=== PATIENT | female | born 1955 ===

== ENCOUNTER 2022-06-09 10:45 | Inpatient (IN) | payer OTHER ==
[~2022-06-09] VITALS: Ht 157.5 cm; Wt 60.3 kg
[2022-06-10] MEDS ORDERED: PEPCID AC10 MG PO (08:25)
[2022-06-10] MEDS ORDERED: CRESTOR10 MG PO (08:26)
[2022-06-10] MEDS ORDERED: ZESTORETIC 10-1 EACH PO (08:26)
[2022-06-10] MEDS ORDERED: FENOFIBRATE30 MG PO (08:26)
[2022-06-10] MEDS ORDERED: METFORMIN HCL500 M3 PO (08:26)
[2022-06-15] MEDS ORDERED: DIPHENHYDR50 MG/1 M1 (08:17)
[2022-06-15] MEDS ORDERED: PANTOPRAZOLE SO40 MG (08:18)
[2022-06-15] MEDS ORDERED: FENOFIBRATE145 MG (08:18)
[2022-06-16] MEDS ORDERED: INTEGRA F CAPS1 EACH PO (06:57)
== END 2022-06-16 11:38 | disposition home or self-care (01) | DRG 331 ==
LOC: SURG 06-12 07:58 → O/R 06-12 07:58 → SURG 06-12 10:45
PROVIDERS: ADMIT Surgery; ATTEND Surgery
PROC: 07BB4ZZ Excision of Mesenteric Lymphatic, Percutaneous Endoscopic Approach (ICD-10-PCS; 2022-06-12)
PROC: 0DTF4ZZ Resection of Right Large Intestine, Percutaneous Endoscopic Approach (ICD-10-PCS; principal; 2022-06-12 20:00)
DX: C18.2 Malignant neoplasm of ascending colon (principal); R59.0 Localized enlarged lymph nodes; K59.09 Other constipation; D50.0 Iron deficiency anemia secondary to blood loss (chronic); D12.1 Benign neoplasm of appendix; I11.9 Hypertensive heart disease without heart failure; E11.9 Type 2 diabetes mellitus without complications; Z20.822 Contact with and (suspected) exposure to COVID-19

== ENCOUNTER 2022-07-10 18:58 | Inpatient (IN) | payer OTHER ==
[~2022-07-10] VITALS: Ht 152.4 cm; Wt 52.2 kg
[~2022-07-10 18:58] MED LIST: CRESTOR10 MG PO; DIPHENHYDR50 MG/1 M1; FENOFIBRATE145 MG; FENOFIBRATE30 MG PO; INTEGRA F CAPS1 EACH PO; METFORMIN HCL500 M3 PO; PANTOPRAZOLE SO40 MG; PEPCID AC10 MG PO; ZESTORETIC 10-1 EACH PO
--- NOTE | 2022-07-10 19:10 | NUR ---
SE RECIBE PTE FEMENINA ALERTA Y ORIENTADA EN LAS LYRIC ESFERAS EN AMBULANCIA QUIEN REFIERE DOLOR ABDOMINAL Y FIEBRE DESDE EL JILLIAN DE MARY. PTE INDICA FUE OPERADA POR DR.LOPEZ ABDUL EL PASADO 14 DE 2021, SE OBSERVA AREA DE HERIDA QUIRURGICA CON ERITEMA Y CALIENTE AL TACTO.
--- NOTE | 2022-07-10 22:39 | NUR ---
PTE FEMENINA EVALUADA POR . SE ORIENTA SOBRE ORDENES DE [place] REFIERE COMPRENDER. SE COELCTAN [facility]UESTR[facility] DE [facility] Y SE CANALIZA VENA BAJO MEDIDAS ASEPTICAS. SE ADMINISTRAN MEDICAMENTOS, BAJO MEDIDAS ASEPTICAS. SE ENTREGA CONTRASTE ORAL Y SE ORIENTA.
--- NOTE | 2022-07-11 02:59 | NUR ---
PTE ALERTA Y ORIENTADA X3 EN ALLI CON BARANDAS ELEVADAS. PTE CANALIZADA AREA RUBEN DE EDEMA Y DE ENROJECIMIENTO. PTE PENDIENTE A CT PO BENNY ORDEN MEDICA.PTE REFIERE QUE NO SE QUIERE MIMI CONTRASTE PO. SE EDUCA DE LA IMPORTANCIA DEL MISMO Y AHUN ASI REFIERE QUE NO SE LO VA A MIMI.
--- NOTE | 2022-07-11 07:57 | NUR ---
SE RECIBE PTE FEMENINA DE 66 YR ALERTA CONCIETE Y TRANQUILA EN COMPANIA DE FAMILAIR. PTE EN ALLI CON BARBADA ELEVADA, SE MANTIENE BAJO OBSERVACION.
[2022-07-16] MEDS ORDERED: AMOX-CLAV 875-1 EACH PO (15:41)
== END 2022-07-16 22:58 | disposition home or self-care (01) | DRG 603 ==
LOC: ER 18:58 → SURH 07-11 10:31
PROVIDERS: ADMIT Surgery; ATTEND Surgery
PROC: 02HV33Z Insertion of Infusion Device into Superior Vena Cava, Percutaneous Approach (ICD-10-PCS; principal; 2022-07-11)
PROC: 30233N1 Transfusion of Nonautologous Red Blood Cells into Peripheral Vein, Percutaneous Approach (ICD-10-PCS; 2022-07-14)
PROC: 0J983ZZ Drainage of Abdomen Subcutaneous Tissue and Fascia, Percutaneous Approach (ICD-10-PCS; 2022-07-14)
DX: L08.89 Other specified local infections of the skin and subcutaneous tissue (principal); C18.2 Malignant neoplasm of ascending colon; B96.1 Klebsiella pneumoniae [K. pneumoniae] as the cause of diseases classified elsewhere; I11.9 Hypertensive heart disease without heart failure; D50.0 Iron deficiency anemia secondary to blood loss (chronic); E78.00 Pure hypercholesterolemia, unspecified; K59.09 Other constipation; E11.65 Type 2 diabetes mellitus with hyperglycemia; Z79.4 Long term (current) use of insulin

== ENCOUNTER → 2022-08-31 | Emergency (ER) | payer OTHER ==
[~2022-08-31] VITALS: Ht 154.9 cm; Wt 54.4 kg
[~2022-08-31] MED LIST changes: +AMOX-CLAV 875-1 EACH PO; +CIPRO500 MG PO; +TAMS0.4C PO
== END | disposition left against medical advice (07) ==
LOC: ER 16:02
DX: N20.9 Urinary calculus, unspecified (principal); K59.00 Constipation, unspecified; E11.9 Type 2 diabetes mellitus without complications; Z79.84 Long term (current) use of oral hypoglycemic drugs; I10 Essential (primary) hypertension; Z87.19 Personal history of other diseases of the digestive system; Z98.890 Other specified postprocedural states